=== PATIENT | male | born 1955 | race Caucasian/White ===

== ENCOUNTER 2017-05-12 06:48 | Day surgery (SDC) | payer OTHER ==
[2017-05-12 07:14] VITALS: BMI 22.8
[2017-05-12 07:26] VITALS: O2SAT 99
[2017-05-12] MEDS ORDERED: Propofol 10 mg/ml Inj (20 ML) ONE (07:58)
--- NOTE | 2017-05-12 08:03 | CP.SDSHP ---
Same Day Surgery H & P - History Proposed Procedure: COLONSCOPY Pre-Op Diagnosis: SEE NOTES - Previous Medical/Surgical History Cardiac: Hypertension Endocrine/Metabolic: Other Misc: Other Pain: 4.Moderate Pain - Allergies Allergies: Allergies No Known Allergies Allergy (Unverified 05/28/13 18:12) - Physical Exam General Appearance: N Vital Signs: Vital Signs 05/12/17 05/12/17 07:13 07:53 Temperature 97.3 F L 97.3 F L Pulse Rate 67 67 Respiratory 19 19 Rate Blood Pressure 149/77 149/77 O2 Sat by Pulse 99 99 Oximetry Mental Status: Alert & Oriented x3 Neuro: WNL Heart: Other Lungs: WNL GI: WNL - {Optional Preform as Required} Breast: WNL Abdomen: Other Rectal: Other Integument: WNL : WNL Ortho: WNL ENT: WNL - Impression Pt. Evaluated Today:Candidate for Anesthesia & Procedure: Yes - Date & Time Time: 08:03 Short Stay Discharge - Short Stay Discharge Admitting Diagnosis/Reason for Visit: RECTAL BLEEDING Disposition: HOME/ ROUTINE Referrals: Brennan Manzanares MD [Primary Care Provider] -
[2017-05-12] MEDS ORDERED: Belladonna-Phenobarbital PO STA (08:04)
[2017-05-12 08:44] VITALS: TEMP 97
[2017-05-12 08:52] VITALS: PULSE 61
[2017-05-12 09:11] VITALS: RESP 15
[2017-05-12 10:03] VITALS: BP 118/58
== END 2017-05-12 10:00 | disposition home or self-care (01) ==
LOC: C.ENDO 06:48
PROVIDERS: ATTEND Specialist
DX: K52.9 Noninfective gastroenteritis and colitis, unspecified (principal); K62.5 Hemorrhage of anus and rectum; K64.8 Other hemorrhoids; I10 Essential (primary) hypertension
CPT/HCPCS: 45380; 88305; J2704

== ENCOUNTER 2017-06-16 07:28 | Day surgery (SDC) | payer OTHER ==
[2017-06-16 07:58] VITALS: BMI 24.3
[2017-06-16 08:16] VITALS: TEMP 97
[2017-06-16] MEDS ORDERED: Propofol 10 mg/ml Inj (20 ML) ONE (08:55)
--- NOTE | 2017-06-16 08:56 | CP.SDSHP ---
Same Day Surgery H & P - History Proposed Procedure: EGD Pre-Op Diagnosis: SEE NOTES - Previous Medical/Surgical History Cardiac: Hypertension Endocrine/Metabolic: Other Pain: 4.Moderate Pain - Allergies Allergies: Allergies pollen extracts Allergy (Verified 06/16/17 07:58) ITCHING - Physical Exam General Appearance: N Vital Signs: Vital Signs 06/16/17 08:02 Temperature 97 F L Pulse Rate 78 Respiratory 16 Rate Blood Pressure 137/76 O2 Sat by Pulse 100 Oximetry Mental Status: Alert & Oriented x3 Neuro: WNL Heart: Other Lungs: WNL GI: Other - {Optional Preform as Required} Breast: WNL Abdomen: Other Rectal: Other Integument: WNL : WNL Ortho: Other ENT: WNL - Impression Pt. Evaluated Today:Candidate for Anesthesia & Procedure: Yes - Date & Time Time: 08:56 Short Stay Discharge - Short Stay Discharge Admitting Diagnosis/Reason for Visit: DYSPEPSIA Disposition: HOME/ ROUTINE
[2017-06-16] MEDS ORDERED: Pantoprazole 40 mg EC Tab PO STA (08:57)
[2017-06-16] MEDS ORDERED: Belladonna-Phenobarbital PO STA (08:58)
[2017-06-16 11:26] VITALS: PULSE 60; O2SAT 100
[2017-06-16 11:32] VITALS: BP 136/78; RESP 20
== END 2017-06-16 11:10 | disposition home or self-care (01) ==
LOC: C.ENDO 07:28
PROVIDERS: ATTEND Specialist
DX: K30 Functional dyspepsia (principal); K44.9 Diaphragmatic hernia without obstruction or gangrene; K29.70 Gastritis, unspecified, without bleeding
CPT/HCPCS: 43239; 88305; J2704

== ENCOUNTER 2018-11-09 06:36 | Day surgery (SDC) | payer OTHER ==
[2018-11-09] MEDS ORDERED: Lactated Ringer's 1,000 ML IV ONE (07:44)
[2018-11-09] MEDS ORDERED: Belladonna-Phenobarbital PO STA (07:48)
--- NOTE | 2018-11-09 07:48 | CP.SDSHP ---
Same Day Surgery H & P - History Proposed Procedure: EGD Pre-Op Diagnosis: SEE NOTES - Previous Medical/Surgical History Cardiac: Hypertension Endocrine/Metabolic: Other Misc: Other Pain: 4.Moderate Pain - Allergies Allergies: Allergies pollen extracts Allergy (Verified 06/16/17 07:58) ITCHING - Physical Exam General Appearance: N Vital Signs: Vital Signs 11/09/18 06:53 Temperature 97.5 F L Pulse Rate 64 Respiratory 19 Rate Blood Pressure 119/80 O2 Sat by Pulse 99 Oximetry N Mental Status: Alert & Oriented x3 Neuro: WNL Heart: Other Lungs: WNL GI: Other - {Optional Preform as Required} Breast: WNL Abdomen: Other Rectal: Other Integument: WNL : WNL Ortho: WNL ENT: WNL - Impression Pt. Evaluated Today:Candidate for Anesthesia & Procedure: Yes - Date & Time Time: 07:48 Short Stay Discharge - Short Stay Discharge Admitting Diagnosis/Reason for Visit: DYSPEPSIA Disposition: HOME/ ROUTINE
[2018-11-09] MEDS ORDERED: Propofol 10 mg/ml Inj (20 ML) ONE (07:50)
[2018-11-09] MEDS ORDERED: Lidocaine Hydrochloride 5 ML INJ ONE (08:01)
[2018-11-09] MEDS ORDERED: Sucralfate 1 gm/10 ml Oral Susp UD PO ONE (08:30)
[2018-11-09 09:00] VITALS: TEMP 98; O2SAT 100
[2018-11-09 09:08] VITALS: BP 138/72; PULSE 65; RESP 20
== END 2018-11-09 09:05 | disposition home or self-care (01) ==
LOC: C.ENDO 06:36
PROVIDERS: ATTEND Specialist
DX: K29.50 Unspecified chronic gastritis without bleeding (principal); K22.10 Ulcer of esophagus without bleeding; K44.9 Diaphragmatic hernia without obstruction or gangrene; K21.0 Gastro-esophageal reflux disease with esophagitis; K31.89 Other diseases of stomach and duodenum; K30 Functional dyspepsia; I10 Essential (primary) hypertension; E78.5 Hyperlipidemia, unspecified
CPT/HCPCS: 43239; 88305; 88342; J2704; J7120